=== PATIENT | female | born 1955 | race Caucasian/White ===

== ENCOUNTER 2019-10-05 11:21 | Outpatient (CLI) | payer MEDICARE, SELFPAY ==
--- NOTE | 2019-10-05 11:52 | XR_ITS ---
WS: [id number] SCREENING DEXA SCAN [employer] CLINICAL INFORMATION: ASYMPTOMATIC MENOPAUSAL STATE COMPARISON: None. FINDINGS: The L1-L4 bone mineral density measures 1.098. This corresponds to a T score score of -0.7 and Z scor e of 0.3. Left femoral neck bone mineral density measures 1.030. This corresponds to a T score of 0.2 and Z sco re of 1.0. Right femoral neck bone mineral density measures 1.055. This corresponds to a T score 0.4 and Z score of 1.2. Mean femoral neck bone mineral density measures 1.043. This corresponds to a T score of 0.3 and Z sco re of 1.1. XR/XR DEXA axial skeleton* [id number] IMPRESSION: Normal bone mineralization. Patient's FRAX calculated 10 year probability for major osteoporotic fracture i s 9.8 % and osteoporotic hip fracture is 0.8%.
== END 2019-10-05 11:22 | disposition home or self-care (01) ==
PROVIDERS: Family Provider Nurse Practitioner; PCP Nurse Practitioner; Referring Provider Nurse Practitioner; Visit Provider Nurse Practitioner
DX: Z78.0 Asymptomatic menopausal state (principal)
CPT/HCPCS: 77080

== ENCOUNTER 2020-09-08 10:02 | Outpatient (CLI) | payer MEDICARE, SELFPAY ==
--- NOTE | 2020-09-08 10:07 | MM_ITS ---
WS: [id number] BILATERAL DIGITAL DIAGNOSTIC MAMMOGRAM MAMMOGRAPHY WITH CAD CLINICAL INFORMATION: MASTODYNIA;LEFT BREAST PAIN COMPARISON: TECHNIQUE: Bilateral CC, MLO, and ML views. FINDINGS: Scattered fibroglandular densities bilaterally. Vascular calcification. A few incidental punctate ifeoma cifications. Palpable marker upper outer left breast. No underlying mammographic abnormalities in thi s location. Ultrasound is pending. ULTRASOUND BREAST LEFT TECHNIQUE: Ultrasound left breast focused area of concern. CLINICAL INFORMATION: MASTODYNIA;LEFT BREAST PAIN COMPARISON: None. FINDINGS: Ultrasound left axilla in the area of concern. Several lymph nodes are visualized. Enlarged likely ly mph node measuring 2.5 x 0.8 x 2.5 cm with loss of the normal fatty hilum. Recommend further evaluati on with ultrasound-guided biopsy. Additional enlarged lymph node measuring 3.1 x 0.9 x 3.3 cm with so me residual fatty hilum. Additional normal-appearing lymph nodes are seen. MM/[place] [id number] IMPRESSION: BI-RADS: 4-Suspicious Finding-Biopsy Should Be Considered FOLLOW UP: US Guided Biopsy Recommended RECOMMEND ULTRASOUND-GUIDED BIOPSY OF THE ENLARGED LEFT AXILLARY LYMPH NODE BJ CRIBED ABOVE.
== END 2020-09-08 10:03 | disposition home or self-care (01) ==
LOC: RADSHAW 10:06
PROVIDERS: PCP Nurse Practitioner; Visit Provider Nurse Practitioner
DX: N64.4 Mastodynia (principal); R59.0 Localized enlarged lymph nodes
CPT/HCPCS: 76642; 77066

== ENCOUNTER 2020-09-26 06:41 | Outpatient (CLI) | payer MEDICARE, SELFPAY ==
--- NOTE | 2020-09-26 08:00 | US_ITS ---
WS: [id number] ULTRASOUND-GUIDED LEFT AXILLARY BIOPSY CLINICAL INFORMATION: abnormal ultrasound enlarged lymph node COMPARISON: None. FINDINGS: The procedure including risks, benefits, and complications were discussed with the patient who agreed to proceed. Using sterile technique patient was prepped and draped in the usual sterile fashion. Aft er 1% lidocaine utilizing real-time ultrasound guidance 5 14-gauge cores were obtained of the left ax illary lymph node. No clip was placed. No immediate complications. PATHOLOGY DEMONSTRATES: Lymph node, left axilla mass , ultrasound-guided biopsy: -Reactive follicular hyperplasia. -No malignancy identified US/US biopsy lymph node breast/ax IMPRESSION: 1. Uncomplicated ultrasound-guided left axillary biopsy. 2. The pathology demonstrates reactive follicular hyperplasia. No evidence of malignancy. BI-RADS: 2-Benign FOLLOW UP: 1 Year Follow-up
[2020-09-29 09:12] LABS: Miscellaneous Test See Scanned Lab Rpt
== END 2020-09-26 06:42 | disposition home or self-care (01) ==
LOC: RAD 06:44
PROVIDERS: PCP Nurse Practitioner; Visit Provider Nurse Practitioner
DX: R59.0 Localized enlarged lymph nodes (principal)
CPT/HCPCS: 19083; 38505; 76942; 88305

== ENCOUNTER → 2022-03-14 13:27 | Outpatient (BNVA) | payer MEDICARE, SELFPAY | PROVIDERS: PCP Nurse Practitioner; Visit Provider Internal Medicine Cardiovascular Disease | DX: Z01.810 Encounter for preprocedural cardiovascular examination (principal); I25.2 Old myocardial infarction; E03.9 Hypothyroidism, unspecified; E78.00 Pure hypercholesterolemia, unspecified; I10 Essential (primary) hypertension | CPT/HCPCS: 99204 ==

== ENCOUNTER 2022-04-09 12:37 | Outpatient (CLI) | payer MEDICARE, SELFPAY ==
--- NOTE | 2022-04-09 13:22 | MM_ITS ---
WS: [id number] BILATERAL 3D TOMOSYNTHESIS DIGITAL SCREENING MAMMOGRAPHY WITH CAD CLINICAL INFORMATION: SCREENING HISTORY: Screening mammogram. No current complaints. COMPARISON: September 08, 2020 TECHNIQUE: Bilateral CC and MLO views. FINDINGS: Scattered fibroglandular densities bilaterally. Vascular calcification. Incidental punctate calcifica tions. No suspicious focal mass, asymmetry, calcifications, or architectural distortion. No evidence of malignancy. MM/[place] [id number] IMPRESSION: BI-RADS: 2-Benign FOLLOW UP: 1 Year Follow-up Recommend return to annual screening mammography.
== END 2022-04-09 12:38 | disposition home or self-care (01) ==
PROVIDERS: PCP Nurse Practitioner; Visit Provider Nurse Practitioner
DX: Z12.31 Encounter for screening mammogram for malignant neoplasm of breast (principal)
CPT/HCPCS: 77063; 77067

== ENCOUNTER 2022-10-09 09:01 | Outpatient (CLI) | payer MEDICARE, SELFPAY ==
--- NOTE | 2022-10-09 09:16 | US_ITS ---
WS: [id number] INDICATION: LEFT axillary pain TECHNIQUE: Ultrasound LEFT axilla FINDINGS: Ultrasound LEFT axilla. Multiple enlarged lymph nodes in the LEFT axilla with cortical thic kening and partial effacement of the fatty hilum. Largest lymph node measures approximately 3.8 x 3.3 x 1.1 cm. History of prior LEFT axillary biopsy. However, considering persistence symptoms and enlar ged lymph nodes, recommend additional ultrasound guided biopsy of the largest lymph node. US/US soft tissue/extremity [id number] IMPRESSION: Recommend ultrasound-guided biopsy of the largest lymph node LEFT a xilla.
== END 2022-10-09 09:02 | disposition home or self-care (01) ==
LOC: RAD 09:04
PROVIDERS: PCP Nurse Practitioner; Visit Provider Nurse Practitioner Family
DX: M79.622 Pain in left upper arm (principal); R59.0 Localized enlarged lymph nodes
CPT/HCPCS: 76882

== ENCOUNTER 2022-10-14 19:16 | Emergency (ER) | payer MEDICARE, SELFPAY ==
--- NOTE | 2022-10-14 19:22 | XRR_ITS ---
PROCEDURE INFORMATION: Exam: XR Chest Exam date and time: 10/14/2022 7:51 PM Age: 67 years old Clinical indication: Sternal or substernal pain; Additional info: Chest pain TECHNIQUE: Imaging protocol: Radiologic exam of the chest. Views: 1 view. COMPARISON: CR XR chest 1V [id number] 04/27/2016 2:23 AM FINDINGS: Lungs: Unremarkable. No consolidation. Pleural spaces: Unremarkable. No pleural effusion. No pneumothorax. Heart/Mediastinum: Unremarkable. No cardiomegaly. Bones/joints: Rightward thoracic curvature. No visible fracture. XR/XR chest 1V portable [id number] IMPRESSION: No acute findings.
--- NOTE | 2022-10-14 19:29 | ECG_ITS ---
[facility] Test Date: 2022-10-14 Pat Name: Vera Wetzel Department: Room: Gender: Female Furnace Filler: : 1955 Requested By: Joseph Voss Order Number: [id number] Mateo MD: Sterling Emanuel M.D. Measurements Intervals [place] Rate: 90 P: 33 LA: 192 QRS: -29 QRSD: 125 T: 10 QT: 351 QTc: 430 Interpretive Statements SINUS RHYTHM MODERATE INTRAVENTRICULAR CONDUCTION DELAY [105+ ms QRS DURATION, 80+ ms Q/S IN V1/V2, NO Q AND 60+ ms R IN I/aVL/V5/V6] VOLTAGE CRITERIA FOR LVH [MEETS CRITERIA IN ONE OF: R(aVL), S(V1), R(V5), R(V5/V6)+S(V1)] Compared to ECG 04/28/2016 12:54:21 Intraventricular conduction delay now present T-wave abnormality no longer present Possible ischemia no longer present Electronically Signed On 10-15-2022 7:11:37 ELECTROLYSIS OPERATOR by Sterling Emanuel M.D. [id number]
[2022-10-14 19:31] VITALS: BP 165/108; PULSE 87; RESP 16; TEMP 36.3; O2SAT 97; BMI 36.1
--- NOTE | 2022-10-14 19:39 | W.ED.CHESTPA ---
HPI - Chest Pain General: Chief Complaint: Chest Pain Stated Complaint: High BP, Chest pressure, Urgent care sent her Time Seen by Provider: 10/14/22 19:35 Source: patient Mode of arrival: ambulatory Limitations: no limitations History of Present Illness: 67-year-old female states that her blood pressures been running high for over a week she is supposed see her PCP on Saturday but she was out of office she states that she went to urgent care today because it been in the 160s and 170s she states she had some very mild pressure in the center of her chest denies any pain at this time. Patient denies any worsening improving factors denies any vomiting or diarrhea. Associated symptoms: Deny abdominal pain, dyspnea, fever(s), nausea or vomiting Review of Systems Const: Denies: fever(s), chills, body aches or change in appetite Eyes: Denies: blurry vision or eye discomfort ENMT: Denies: throat pain or dental pain Card: Reports: chest pain Resp: Denies: dyspnea GI: Denies: abdominal pain, nausea, vomiting or diarrhea : Denies: dysuria Musc: Denies: neck pain or back pain Skin/Breast: Denies: rash Neuro: Denies: headache(s) Psych: Denies: depression Wilbert/Lymph: Denies: easy bruising All/Imm: Denies: urticaria PFSH ED PFSH: Medical History Atherosclerosis CAD (coronary artery disease) Colon cancer Coronary thrombosis History of rectocele Hypercholesterolemia Hypertriglyceridemia Hypothyroidism Surgical History History of bowel resection Hx of cholecystectomy Hx of hysterectomy Hx of tubal ligation Social History Smoking and tobacco status: never smoked Physical Exam Const: COMMON NORMALS: no acute distress, patient oriented x3 and healthy appearing HENMT: COMMON NORMALS: normocephalic and atraumatic HEAD & SCALP: normocephalic and atraumatic Eye: COMMON NORMALS: Equal, round and reactive pupils present and EOMs intact bilaterally PUPIL: Yes Equal, round and reactive pupils present Neck/C-Spine: COMMON NORMALS: full ROM and supple Chest: COMMONS NORMALS: normal inspection of the chest and normal palpation of entire chest wall Resp: COMMON NORMALS: normal respiratory effort, No retractions, No use of accessory muscles and clear to auscultation bilaterally AUSCULTATION: clear to auscultation bilaterally Cardio: COMMON NORMALS: regular rate, regular rhythm and No murmurs present (Cardio) RATE: regular rate RHYTHM: regular rhythm GI: COMMON NORMALS: Normal to inspection, nondistended, normoactive bowel sounds present, Soft to palpation, non-tender and no masses PALPATION: Yes Soft to palpation Extremity: COMMON NORMALS: normal to inspection and full ROM Neuro: COMMON NORMALS: patient oriented x3, moves all extremities and no focal motor deficits Psych: COMMON NORMALS: mental status grossly normal, Normal thought process present and cooperative THOUGHT PROCESS: Normal thought process present Skin: COMMON NORMALS: no rashes or lesions noted and no wounds GENERAL SKIN EXAM: no rashes or lesions noted Course Vital Signs: Vital signs: Vital Signs Temperature 97.4 F L 10/14/22 19:31 Pulse Rate 75 10/14/22 19:53 Respiratory Rate 14 10/14/22 19:53 Blood Pressure 153/117 10/14/22 19:53 Pulse Oximetry 98 10/14/22 19:53 Oxygen Delivery Me thod 10/14/22 19:53 MDM - Chest Pain Medical Decision Making Patient presents here with high blood pressure she has had some mild chest discomfort no real pain she is pain-free here her troponin here is normal blood pressure improved here she had an appoint with her PCP tomorrow at 8 AM I feel she stable for discharge she is to follow-up as scheduled return if worsening she understands agrees to plan. Lab Data 10/14/22 19:50 10/14/22 19:50 Radiology Impressions Chest X-Ray 10/14/22 19:22 IMPRESSION: No acute findings. Laboratory Results WBC 5.9 10^3/uL (4.0-10.0) 10/14/22 19:50 RBC 5.10 10^6/uL (4.1-5.3) 10/14/22 19:50 Hgb 15.6 g/dL (11.5-15.3) H 10/14/22 19:50 Hct 45.7 % (37.0-47.0) 10/14/22 19:50 MCV 89.6 fl (81-99) 10/14/22 19:50 MCH 30.6 pg (28.0-34.0) 10/14/22 19:50 MCHC 34.1 g/dL (30.0-36.0) 10/14/22 19:50 RDW 12.4 % (12.1-15.1) 10/14/22 19:50 Plt Count 184 10^3/cmm (130-400) 10/14/22 19:50 MPV 10.4 fL (7.4-10.4) 10/14/22 19:50 Neut % (Auto) 57.4 % 10/14/22 19:50 Lymph % (Auto) 34.3 % 10/14/22 19:50 [place] % (Auto) 5.3 % 10/14/22 19:50 Eos % (Auto) 1.5 % 10/14/22 19:50 Baso % (Auto) 1.0 % 10/14/22 19:50 Neut # (Auto) 3.36 10^3/uL (1.8-7.7) 10/14/22 19:50 Lymph # (Auto) 2.0 10^3/uL (0.8-4.8) 10/14/22 19:50 [place] # (Auto) 0.3 10^3/uL (0.2-0.9) 10/14/22 19:50 Eos # (Auto) 0.1 10^3/uL (0.0-0.8) 10/14/22 19:50 Baso # (Auto) 0.1 10^3/uL (0.0-0.1) 10/14/22 19:50 Nucleated RBC % (auto) 0 % 10/14/22 19:50 Nucleated RBCs # 0.0 /100WBC 10/14/22 19:50 Sodium 134 mmol/L (136-145) L 10/14/22 19:50 Potassium 3.8 mmol/L (3.5-5.1) 10/14/22 19:50 Chloride 99 mmol/L (98-107) 10/14/22 19:50 Carbon Dioxide 25 mmol/L (22-29) 10/14/22 19:50 Anion Gap 13.8 (5-19) 10/14/22 19:50 BUN 13 mg/dL (8-23) 10/14/22 19:50 Creatinine 1.0 mg/dL (0.5-0.9) H 10/14/22 19:50 GFR Calculation 55.1 mL/min (90-130) L 10/14/22 19:50 Glucose 129 mg/dL (65-115) H 10/14/22 19:50 Calculated Osmolality 280 mOsm/kg (285-295) L 10/14/22 19:50 Calcium 9.5 mg/dL (8.5-10.5) 10/14/22 19:50 Total Bilirubin 0.3 mg/dL (0.15-1.2) 10/14/22 19:50 AST 21 U/L (0-32) 10/14/22 19:50 ALT 19 U/L (0-33) 10/14/22 19:50 Alkaline Phosphatase 69 U/L (35-105) 10/14/22 19:50 Troponin T Baseline 8 ng/L (0-10) 10/14/22 19:50 NT-Pro-B Natriuret Pep 71 pg/mL (0-125) 10/14/22 19:50 Total Protein 6.6 g/dL (6.6-8.7) 10/14/22 19:50 Albumin 4.4 g/dL (3.5-5.2) 10/14/22 19:50 Globulin 2.2 g/dL (1.3-4.6) 10/14/22 19:50 EKG Data EKG 1: I personally reviewed and interpreted this EKG as follows: EKG interpretation date: 10/14/22 EKG interpretation time: 19:29 Interpretation: nsr hr [address] or t wave abnormalities qrs 125 qtc 398 Discharge Plan Discharge Patient Disposition: Home Clinical Impression: Hypertension Condition: Stable Prescriptions: No Action aspirin [Adult Aspirin Regimen] 81 mg tablet,delayed release (DR/EC) 81 mg PO DAILY isosorbide mononitrate 30 mg tablet extended release 24 hr 30 mg PO DAILY pantoprazole 40 mg tablet,delayed release (DR/EC) 40 mg PO DAILY levothyroxine 50 mcg tablet 50 mcg PO DAILY metoprolol succinate 50 mg tablet extended release 24 hr 75 mg PO DAILY lisinopril 10 mg tablet 10 mg PO DAILY simvastatin 10 mg tablet 10 mg PO DAILY nitroglycerin 0.4 mg tablet, sublingual 0.4 mg sublingual Q5M PRN Rx Instructions: do not exceed 3 doses per episode Discharge Orders: Discharge ED (Routine); Ordered 10/14/22 Ordered By: Edilberto Barahona Referrals: Carli Mello APN [Primary Care Provider] - Discharge Diet: Advance as tolerated Discharge Activity: Resume usual activity Patient Instructions: Hypertension (ED) Coding Level of Care Code ED Quality Technician for Chg Fwd Exam Comprehensive
[2022-10-14 19:53] VITALS: BP 153/117; PULSE 75; RESP 14; O2SAT 98
[2022-10-14 19:59] LABS: Basophils # 0.1 10^3/uL (0.0-0.1); Eosinophils # 0.1 10^3/uL (0.0-0.8); Eosinophils % 1.5 %; Hematocrit 45.7 % (37.0-47.0); Hemoglobin 15.6 g/dL (11.5-15.3); Lymphocytes % 34.3 %; Mean Corpuscular HGB Conc 34.1 g/dL (30.0-36.0); Mean Corpuscular Hemoglobin 30.6 pg (28.0-34.0); Mean Corpuscular Volume 89.6 fl (81-99); Mean Platelet Volume 10.4 fL (7.4-10.4); Monocytes # 0.3 10^3/uL (0.2-0.9); Monocytes % 5.3 %; Neutrophils # 3.36 10^3/uL (1.8-7.7); Neutrophils % 57.4 %; Nucleated Red Blood Cells % 0 %; Platelet Count 184 10^3/cmm (130-400); Red Cell Distribution Width 12.4 % (12.1-15.1); White Blood Count 5.9 10^3/uL (4.0-10.0)
[2022-10-14] MEDS: labetalol 5 mg/mL SDV 20mL 10 MG IVP (20:02)
[2022-10-14 20:29] LABS: Troponin(5th) Baseline 8 ng/L (0-10)
[2022-10-14 20:36] LABS: Alanine Aminotransferase 19 U/L (0-33); Albumin Level 4.4 g/dL (3.5-5.2); Alkaline Phosphatase 69 U/L (35-105); Anion Gap 13.8 (5-19); Aspartate Amino Transferase 21 U/L (0-32); Blood Urea Nitrogen 13 mg/dL (8-23); Calcium 9.5 mg/dL (8.5-10.5); Carbon Dioxide 25 mmol/L (22-29); Chloride 99 mmol/L (98-107); Globulin 2.2 g/dL (1.3-4.6); Glomerular Filtration Rate 55.1 mL/min (90-130); Glucose 129 mg/dL (65-115); NT Pro B Type Natriuretic Pept 71 pg/mL (0-125); Osmolality Calculated 280 mOsm/kg (285-295); Potassium 3.8 mmol/L (3.5-5.1); Sodium 134 mmol/L (136-145); Total Bilirubin 0.3 mg/dL (0.15-1.2); Total Protein 6.6 g/dL (6.6-8.7)
[2022-10-14 20:40] VITALS: BP 152/93; PULSE 71; RESP 16; TEMP 36.9; O2SAT 97
== END 2022-10-14 20:48 | disposition home or self-care (01) ==
PROVIDERS: Nurse Practitioner Family; Emergency Provider Emergency Medicine; PCP Nurse Practitioner
DX: I10 Essential (primary) hypertension (principal); Z79.82 Long term (current) use of aspirin; I25.10 Atherosclerotic heart disease of native coronary artery without angina pectoris; Z85.038 Personal history of other malignant neoplasm of large intestine
CPT/HCPCS: 71045; 80053; 83880; 84484; 85025; 93005; 96374; 99285; J3490

== ENCOUNTER 2022-10-17 09:51 | Emergency (ER) | payer MEDICARE, SELFPAY ==
[2022-10-17 10:00] VITALS: BP 136/91; PULSE 81; RESP 18; TEMP 36.3; O2SAT 96; BMI 35.7
--- NOTE | 2022-10-17 11:36 | XRR_ITS ---
PROCEDURE INFORMATION: Exam: XR Chest Exam date and time: 10/17/2022 11:55 AM Age: 67 years old Clinical indication: Pain; Angina pectoris; Prior surgery; Patient HX: HX of colon cancer; Additional info: Cp TECHNIQUE: Imaging protocol: Radiologic exam of the chest. Views: 1 view. COMPARISON: CR (CHEST, ) 10/14/2022 7:51 PM FINDINGS: Lungs: Unremarkable. No consolidation. Pleural spaces: Unremarkable. No pleural effusion. No pneumothorax. Heart/Mediastinum: Unremarkable. No cardiomegaly. Bones/joints: Unremarkable. XR/XR chest 1V portable [id number] IMPRESSION: No acute findings.
--- NOTE | 2022-10-17 11:36 | ECG_ITS ---
[facility] Test Date: 2022-10-17 Pat Name: Vera Wetzel Department: Room: Gender: Female Precision Dancer: : 1955 Requested By: Ryan Jalloh Order Number: [id number] Mateo MD: Phylicia Staples M.D. Measurements Intervals [place] Rate: 70 P: 22 [place]: 192 QRS: -42 QRSD: 141 T: 9 QT: 396 QTc: 430 Interpretive Statements SINUS RHYTHM LEFT AXIS DEVIATION [QRS AXIS < -30] INTRAVENTRICULAR CONDUCTION DELAY [130+ ms QRS DURATION] Compared to ECG 10/14/2022 19:29:17 Left-axis deviation now present Left ventricular hypertrophy no longer present Electronically Signed On 10-18-2022 10:05:44 TAPE CONTROL SKIN OR SPAR MILL OPERATOR by Phylicia Staples M.D. [id number]
--- NOTE | 2022-10-17 11:38 | ED_ITS ---
HPI - General Adult General: Chief complaint: General Medical Stated complaint: Muukl sent for BP issues Time Seen by Provider: 10/17/22 10:08 Source: patient and family Mode of arrival: ambulatory Limitations: no limitations History of Present Illness: This patient was referred from [facility] clinic. Patient has a history of hypertension and coronary artery disease who had a thrombotic SD 6 years ago that did not require stenting. She is here because she has had fluctuations in her blood pressure associated with chest pressure epigastric pressure since yesterday evening. She states has been pretty constant since that period of time. She states she has had occasional episodes in the past. She has had a history of acid reflux and does take a proton pump inhibitor. She denies any history of vomiting radiation to her back. She states the pain seems to worsen some when she takes a deep breath. She states her blood pressure has been as high as 170/118 at home. She also admits that she has been taking some Naprosyn episodically for some left shoulder pain. Prior cholecystectomy and no food related issues. She is a nontobacco user does not use alcohol. Not been recently ill with fever cough etc. No blood in her stools or black tarry stools. No syncope near syncope palpitations etc. Associated symptoms: Reports chest pain; Deny palpitations, syncope or vomiting Review of Systems Const: Denies: fever(s) or chills Card: Reports: chest pain; Denies: palpitations, syncope or pre-syncope Resp: Denies: productive cough, non-productive cough, wheezing or stridor GI: Denies: vomiting, hematochezia or melena : Denies: flank pain, difficulty voiding or dysuria Musc: Denies: back pain, extremity pain or extremity swelling Psych: Denies: anxiety Wilbert/Lymph: Denies: easy bruising or easy bleeding PFSH ED PFSH: Medical History Atherosclerosis CAD (coronary artery disease) Colon cancer Coronary thrombosis History of rectocele Hypercholesterolemia Hypertriglyceridemia Hypothyroidism Surgical History History of bowel resection Hx of cholecystectomy Hx of hysterectomy Hx of tubal ligation Social History Smoking and tobacco status: never smoked Physical Exam Narrative: EXAM NARRATIVE: Appears to be quite comfortable. She interacts appropriately and answers questions in a goal-directed fashion. Const: COMMON NORMALS: no acute distress, patient oriented x3, healthy appearing and alert GENERAL APPEARANCE: cooperative and comfortable NUTR ITIONAL APPEARANCE: overweight HENMT: COMMON NORMALS: normocephalic, Normal nasal mucous membranes and turbinates present, moist oral mucous membranes and oropharynx normal HEAD & SCALP: normocephalic NOSE: Normal nasal mucous membranes and turbinates present Eye: COMMON NORMALS: Equal, round and reactive pupils present, EOMs intact bilaterally and conjunctivae normal CONJUNCTIVA: Yes conjunctivae normal PUPIL: Yes Equal, round and reactive pupils present Neck/C-Spine: COMMON NORMALS: full ROM, no lymphadenopathy, no JVD and No carotid bruits Chest: COMMONS NORMALS: normal inspection of the chest OTHER: Palpation in the inferior portion of the anterior sternum reproduces tenderness. No skin rashes. No ecchymosis. Resp: COMMON NORMALS: normal respiratory effort, No use of accessory muscles, clear to auscultation bilaterally and percussion normal EFFORT & INSPECTION: Yes able to speak in complete sentences AUSCULTATION: clear to auscultation bilaterally PERCUSSION: percussion normal Cardio: COMMON NORMALS: no JVD, regular rate, regular rhythm, No clicks present (Cardio), No murmurs present (Cardio) and Peripheral pulses 2+ throughout RATE: regular rate RHYTHM: regular rhythm PERIPHERAL PULSES: Peripheral pulses 2+ throughout GI: COMMON NORMALS: Normal to inspection, nondistended, normoactive bowel sounds present, No hepatosplenomegaly present, no masses and no bruits PALPATION: Yes No hepatosplenomegaly present OTHER: She has tenderness in the epigastrium under the sternum. No peritoneal signs, rebound, guarding etc. : COMMON NORMALS: Yes no CVA tenderness BLADDER/KIDNEY EXAM: Yes no CVA tenderness Back/Pelvis: COMMON NORMALS: no CVA tenderness, thoracic and lumbar spine normal to inspection, no thoracic nor lumbar tenderness, thoraco-lumbar ROM normal and straight leg raise negative bilaterally Extremity: COMMON NORMALS: normal to inspection, full ROM, capillary refill normal, no joint enlargement, no clubbing, cyanosis or edema, no calf tenderness and no pedal edema Neuro: COMMON NORMALS: patient oriented x3, moves all extremities, no focal motor deficits and no sensory deficits noted SENSORIUM/ORIENTATION: Yes alert Psych: COMMON NORMALS: mental status grossly normal Skin: COMMON NORMALS: no rashes or lesions noted and turgor normal GENERAL SKIN EXAM: no rashes or lesions noted and turgor normal Course Reevaluation(s): Reevaluation #1: Patient states she is improving. I shared with both she and her spouse regarding negative troponin and other ancillary studies at this time which were all reassuring given the duration of her symptoms. Time: 12:40 Reevaluation #2: Patient is totally asymptomatic at this time. Second troponin is also reassuring as well as serial EKGs. She expresses desire to be discharged home. We discussed plan of care. Time: 15:10 Vital Signs: Vital signs: Vital Signs Temperature 97.4 F L 10/17/22 10:00 Pulse Rate 81 10/17/22 10:00 Respiratory Rate 18 10/17/22 10:00 Blood Pressure 132/86 10/17/22 13:55 Pulse Oximetry 98 10/17/22 13:55 Oxygen Delivery Me thod 10/17/22 13:55 [facility] - General Adult Medical Decision Making Patient with a history of hypertension. She is had epigastric pain for greater than 12 hours prior to arrival to our emergency department. She is also has some mild fluctuations in her blood pressure which has concerned her. She is apparently been taking some Naprosyn on an as-needed basis for shoulder pain. She is not had any history that suggested significant GI bleeding with black tarry stools, bloody stools etc. She had a prior cholecystectomy. Her blood pressures were noted to be in a normal range while in the emergency department. Because of her comorbidities and current symptoms she was evaluated for possible ACS and no evidence at this time given serial biomarkers being reassuring as well as serial electrocardiograms showing no ischemic changes making ACS unlikely. No other significant findings on clinical history, exam or ancillary test today that suggest other concerning conditions. Certainly suggest possible gastroesophageal reflux disease or acid dyspepsia. She has been taking a proton pump inhibitor for many years and I think it is appropriate for us to discontinue that and place her on double therapy with Carafate and Pepcid for approximately 2 weeks and have her followed up with her primary care office as scheduled. We also discussed the potential need for additional testing such as endoscopy etc. in the future should she not continue to be symptom-free. Medical Records I reviewed the patient's medical records. Lab Data I reviewed the patient's lab results. 10/17/22 11:50 10/17/22 11:50 Radiology Impressions Chest X-Ray 10/17/22 11:36 IMPRESSION: No acute findings. Laboratory Results WBC 7.2 10^3/uL (4.0-10.0) 10/17/22 11:50 RBC 5.32 10^6/uL (4.1-5.3) H 10/17/22 11:50 Hgb 16.7 g/dL (11.5-15.3) H 10/17/22 11:50 Hct 48.1 % (37.0-47.0) H 10/17/22 11:50 MCV 90.4 fl (81-99) 10/17/22 11:50 MCH 31.4 pg (28.0-34.0) 10/17/22 11:50 MCHC 34.7 g/dL (30.0-36.0) 10/17/22 11:50 RDW 12.5 % (12.1-15.1) 10/17/22 11:50 Plt Count 208 10^3/cmm (130-400) 10/17/22 11:50 MPV 10.3 fL (7.4-10.4) 10/17/22 11:50 Neut % (Auto) 67.7 % 10/17/22 11:50 Lymph % (Auto) 25.8 % 10/17/22 11:50 Dickson % (Auto) 5.0 % 10/17/22 11:50 Eos % (Auto) 0.4 % 10/17/22 11:50 Baso % (Auto) 0.7 % 10/17/22 11:50 Neut # (Auto) 4.84 10^3/uL (1.8-7.7) 10/17/22 11:50 Lymph # (Auto) 1.9 10^3/uL (0.8-4.8) 10/17/22 11:50 Dickson # (Auto) 0.4 10^3/uL (0.2-0.9) 10/17/22 11:50 Eos # (Auto) 0.0 10^3/uL (0.0-0.8) 10/17/22 11:50 Baso # (Auto) 0.1 10^3/uL (0.0-0.1) 10/17/22 11:50 Nucleated RBC % (auto) 0 % 10/17/22 11:50 Nucleated RBCs # 0.0 /100WBC 10/17/22 11:50 Sodium 137 mmol/L (136-145) 10/17/22 11:50 Potassium 3.9 mmol/L (3.5-5.1) 10/17/22 11:50 Chloride 101 mmol/L (98-107) 10/17/22 11:50 Carbon Dioxide 25 mmol/L (22-29) 10/17/22 11:50 Anion Gap 14.9 (5-19) 10/17/22 11:50 BUN 12 mg/dL (8-23) 10/17/22 11:50 Creatinine 1.0 mg/dL (0.5-0.9) H 10/17/22 11:50 GFR Calculation 55.1 mL/min (90-130) L 10/17/22 11:50 Glucose 102 mg/dL (65-115) 10/17/22 11:50 Calculated Osmolality 284 mOsm/kg (285-295) L 10/17/22 11:50 Calcium 9.7 mg/dL (8.5-10.5) 10/17/22 11:50 Total Bilirubin 0.4 mg/dL (0.15-1.2) 10/17/22 11:50 AST 24 U/L (0-32) 10/17/22 11:50 ALT 19 U/L (0-33) 10/17/22 11:50 Alkaline Phosphatase 70 U/L (35-105) 10/17/22 11:50 Troponin T Baseline 7 ng/L (0-10) 10/17/22 11:50 Troponin T 120 Minute 6.97 ng/L (0-10) 10/17/22 14:16 Delta Troponin T -0.03 ABS# (0-10) L 10/17/22 14:16 Total Protein 7.1 g/dL (6.6-8.7) 10/17/22 11:50 Albumin 4.5 g/dL (3.5-5.2) 10/17/22 11:50 Globulin 2.6 g/dL (1.3-4.6) 10/17/22 11:50 Lipase 60 U/L (13-60) 10/17/22 11:50 EKG Data EKG 1: I personally reviewed and interpreted this EKG as follows: Interpretation: Contemporaneous review of EKG reveals ventricular rate of 70 bpm consistent with sinus rhythm. Normal OR interval, QRS duration. Corrected QT intervals normal. He has a leftward axis consistent with likely left anterior Heema block but no other acute ST-T wave changes noted. Computer generated interpretation: Chest X-Ray 10/17/22 11:36 IMPRESSION: No acute findings. EKG 2: I personally reviewed and interpreted this EKG as follows: Interpretation: Repeat electrocardiogram this visit reveals a sinus bradycardia 58 bpm. She has normal OR interval, QRS duration, corrected QT interval. She has leftward axis. As previously noted. No other acute ST-T wave changes and unchanged compared with prior tracings. Computer generated interpretation: Chest X-Ray 10/17/22 11:36 IMPRESSION: No acute findings. Discharge Plan Discharge Patient Disposition: Home Clinical Impression: Hypertension, Abdominal pain, epigastric Condition: Stable Prescriptions: New Carafate 1 gram tablet 1 g PO TID 28 Days Qty: 84 0RF Pepcid 40 mg tablet 40 mg PO BID 14 Days Qty: 28 0RF Discontinued pantoprazole 40 mg tablet,delayed release (DR/EC) 40 mg PO QPM naproxen 500 mg tablet 250 - 500 mg PO BID PRN (Reason: Pain) No Action aspirin [Adult Aspirin Regimen] 81 mg tablet,delayed release (DR/EC) 81 mg PO QAM isosorbide mononitrate 30 mg tablet extended release 24 hr 30 mg PO QAM metoprolol succinate 50 mg tablet extended release 24 hr 50 mg PO BID lisinopril 10 mg tablet 10 mg PO BEDTIME simvastatin 10 mg tablet 10 mg PO BEDTIME nitroglycerin 0.4 mg tablet, sublingual 0.4 mg sublingual Q5M PRN (Reason: Chest Pain) Rx Instructions: do not exceed 3 doses per episode levothyroxine 25 mcg tablet 25 mcg PO QAM Discharge Orders: Discharge ED (Routine); Ordered 10/17/22 Ordered By: Ryan Jalloh Referrals: Tran Gilman NP [Primary Care Provider] - Discharge Diet: Usual diet Discharge Activity: Increase activity as tolerated Patient Instructions: Abdominal Pain (ED), Opioid Safety, Pain Management Activity Restrictions/Additional Instructions: We have made changes to your medications as discussed. Continue the new medications and follow-up with your regular doctor in 2 weeks for reevaluation to determine if therapy is improving and or additional testing needs to be performed. If you develop persistent chest pain, shortness of breath, fevers chills or other concerns return to this or the nearest emergency department. Coding Level of Care Code ED Identification Technician for Parish Fwd Exam Comprehensive
[2022-10-17 12:01] LABS: Basophils # 0.1 10^3/uL (0.0-0.1); Basophils % 0.7 %; Eosinophils % 0.4 %; Hematocrit 48.1 % (37.0-47.0); Hemoglobin 16.7 g/dL (11.5-15.3); Lymphocytes # 1.9 10^3/uL (0.8-4.8); Lymphocytes % 25.8 %; Mean Corpuscular HGB Conc 34.7 g/dL (30.0-36.0); Mean Corpuscular Hemoglobin 31.4 pg (28.0-34.0); Mean Corpuscular Volume 90.4 fl (81-99); Mean Platelet Volume 10.3 fL (7.4-10.4); Monocytes # 0.4 10^3/uL (0.2-0.9); Neutrophils # 4.84 10^3/uL (1.8-7.7); Neutrophils % 67.7 %; Nucleated Red Blood Cells % 0 %; Platelet Count 208 10^3/cmm (130-400); Red Blood Count 5.32 10^6/uL (4.1-5.3); Red Cell Distribution Width 12.5 % (12.1-15.1); White Blood Count 7.2 10^3/uL (4.0-10.0)
[2022-10-17] MEDS: aspirin 81 mg Chew Tablet 162 MG PO (12:20)
[2022-10-17] MEDS: famotidine 20 mg/2 mL INJ 40 MG IVP (12:21)
[2022-10-17] MEDS: sodium chloride 0.9% 500 ML IV (12:21)
[2022-10-17 12:23] LABS: Troponin(5th) Baseline 7 ng/L (0-10)
[2022-10-17 12:25] LABS: Alanine Aminotransferase 19 U/L (0-33); Albumin Level 4.5 g/dL (3.5-5.2); Alkaline Phosphatase 70 U/L (35-105); Anion Gap 14.9 (5-19); Aspartate Amino Transferase 24 U/L (0-32); Blood Urea Nitrogen 12 mg/dL (8-23); Calcium 9.7 mg/dL (8.5-10.5); Carbon Dioxide 25 mmol/L (22-29); Chloride 101 mmol/L (98-107); Globulin 2.6 g/dL (1.3-4.6); Glomerular Filtration Rate 55.1 mL/min (90-130); Glucose 102 mg/dL (65-115); Lipase 60 U/L (13-60); Osmolality Calculated 284 mOsm/kg (285-295); Potassium 3.9 mmol/L (3.5-5.1); Sodium 137 mmol/L (136-145); Total Bilirubin 0.4 mg/dL (0.15-1.2); Total Protein 7.1 g/dL (6.6-8.7)
[2022-10-17] MEDS: sucralfate 1 gm/10 mL Oral Liq UDC PO (13:36)
--- NOTE | 2022-10-17 13:48 | ECG_ITS ---
[facility] Test Date: 2022-10-17 Pat Name: Vera Wetzel Department: Room: Gender: Female Environmental Professional: : 1955 Requested By: Ryan Jalloh Order Number: [id number] Mateo MD: Phylicia Staples M.D. Measurements Intervals [place] Rate: 58 P: 82 ND: 206 QRS: -39 QRSD: 123 T: -3 QT: 411 QTc: 405 Interpretive Statements SINUS BRADYCARDIA LEFT AXIS DEVIATION [QRS AXIS < -30] MODERATE INTRAVENTRICULAR CONDUCTION DELAY [105+ ms QRS DURATION, 80+ ms Q/S IN V1/V2, NO Q AND 60+ ms R IN I/aVL/V5/V6] VOLTAGE CRITERIA FOR LVH [MEETS CRITERIA IN ONE OF: R(aVL), S(V1), R(V5), R(V5/V6)+S(V1)] Compared to ECG 10/17/2022 11:44:58 Left ventricular hypertrophy now present Sinus rhythm no longer present Electronically Signed On 10-18-2022 10:11:40 GAS STATION ATTENDANT by Phylicia Staples M.D. [id number]
[2022-10-17 13:55] VITALS: BP 132/86; O2SAT 98
[2022-10-17 14:48] LABS: Troponin 5 2HR 6.97 ng/L (0-10)
[2022-10-17 14:53] LABS: Troponin 5 2HR Delta -0.03 ABS# (0-10)
[2022-10-17] MEDS: hyoscyamine ODT 0.125 mg Tablet PO (15:00)
[2022-10-17 15:17] VITALS: BP 127/81; PULSE 71; O2SAT 98
== END 2022-10-17 15:18 | disposition home or self-care (01) ==
PROVIDERS: Emergency Provider Emergency Medicine; PCP Nurse Practitioner Family
DX: R10.13 Epigastric pain (principal); I10 Essential (primary) hypertension; Z79.82 Long term (current) use of aspirin; I25.10 Atherosclerotic heart disease of native coronary artery without angina pectoris; Z85.038 Personal history of other malignant neoplasm of large intestine
CPT/HCPCS: 36415; 71045; 80053; 83690; 84484; 85025; 93005; 96361; 96374; 99285; J3490; J7040

== ENCOUNTER 2022-10-18 11:11 | Outpatient (CLI) | payer MEDICARE, SELFPAY ==
--- NOTE | 2022-10-18 11:34 | USCV_ITS ---
Vera Wetzel Age: 67 Gender: F : 1955 Exam Date: 10/18/2022 12:13 Ordering Phys: Tran Gilman NP Technologist: PETERSON Exam Location: [facility] [place] Indication: chest pain, shortness of breath BP: 134 / 80 HR: 63 Rhythm: Sinus Technical Quality: Adequate MEASUREMENTS (Male / Female) Normal Values 2D ECHO LV Diastolic Diameter PLAX 4.3 cm 4.2 - 5.9 / 3.9 - 5.3 cm LV Systolic Diameter PLAX 2.9 cm IVS Diastolic Thickness 0.6 cm 0.6 - 1.0 / 0.6 - 0.9 cm IVS Systolic Thickness 0.9 cm LVPW Diastolic Thickness 0.7 cm 0.6 - 1.0 / 0.6 - 0.9 cm LVPW Systolic Thickness 1.8 cm LVOT Diameter 2.0 cm LV Ejection Fraction 2D Teich 61.5 % LV Ejection Fraction MOD 2C 53.7 % LV Ejection Fraction 2C AL 52.6 % LA Diameter 3.4 cm LA Width 3.4 cm LA Height 3.7 cm RA Width 2.5 cm RA Height 3.2 cm Aorta at Sinotubular Diameter 2.5 cm IVC Diameter 1.6 cm M-MODE Aortic Annulus Diameter 2.7 cm LA Ao Ratio MM 1.3 MV E Point Septal Separation 1.0 cm DOPPLER AV Peak Velocity 125.0 cm/s LVOT Peak Velocity 102.0 cm/s AV Area Cont Eq vti 2.5 cm squared AV Area Cont Eq pk 2.6 cm squared MV Peak Velocity 88.0 cm/s MV Area PHT 4.4 cm squared Mitral E to A Ratio 0.9 MV E' Velocity 40.0 cm/s Mitral E to MV E' Ratio 5.8 Mitral E to LV E' Lateral Ratio 4.4 Mitral E to LV E' Septal Ratio 8.7 TR Peak Velocity 168.5 cm/s TR Peak Gradient 11.4 mmHg TR Mean Velocity 142.0 cm/s TR Mean Gradient 8.7 mmHg TR Velocity Time Integral 46.2 cm Right Atrial Pressure 3.0 mmHg Pulmonary Artery Systolic Pressu 14.4 mmHg PV Peak Velocity 87.0 cm/s RV Acceleration Time 0.1 s RV Ejection Time 0.3 s RV AcT/ET 0.3 FINDINGS Left Ventricle Left ventricle is normal size. LV systolic function is normal with EF of 55 to 60%. Mild hypokinesis of inferior and inferolateral berry seen Right Ventricle Normal in size and function Right Atrium Normal in size Left Atrium Normal in size Mitral Valve Mitral valve is thickened. Trace mitral regurgitation. Aortic Valve Aortic valve is thickened. No significant stenosis. Mild aortic regurgitation. Tricuspid Valve Mild tricuspid regurgitation. Pulmonary artery systolic pressure is normal. Pulmonic Valve Not well-visualized Pericardium Normal Aorta Normal in size IVC Appears to be normal CONCLUSIONS LV systolic function is normal with EF 55 to 60% Mild mitral regurgitation Mild aortic regurgitation Mild tricuspid regurgitation Compared to prior echocardiogram from 2016, no significant change are seen. Raad Collier MD (Electronically Signed) Final Date: 20 October 2022 21:00 S
== END 2022-10-18 11:12 | disposition home or self-care (01) ==
PROVIDERS: PCP Nurse Practitioner Family; Visit Provider Nurse Practitioner Family
DX: R07.9 Chest pain, unspecified (principal); R06.02 Shortness of breath; I08.3 Combined rheumatic disorders of mitral, aortic and tricuspid valves
CPT/HCPCS: 93306

== ENCOUNTER 2022-10-27 01:25 | Emergency (ER) | payer MEDICARE, SELFPAY ==
[2022-10-27 01:33] VITALS: BP 173/101; PULSE 87; RESP 16; TEMP 36.5; O2SAT 98; BMI 36.9
[2022-10-27 02:00] VITALS: BP 142/94; PULSE 77; RESP 16; O2SAT 95
--- NOTE | 2022-10-27 02:20 | XRR_ITS ---
PROCEDURE INFORMATION: Exam: XR Chest Exam date and time: 10/27/2022 2:37 AM Age: 67 years old Clinical indication: Pain; Chest pressure; Additional info: Cp TECHNIQUE: Imaging protocol: Radiologic exam of the chest. Views: 1 view. COMPARISON: CR XR chest 1V portable [id number] 10/17/2022 11:55 AM FINDINGS: Lungs: Minimal left basilar atelectasis. Pneumonia should be excluded clinically. Pleural spaces: Unremarkable. No pleural effusion. No pneumothorax. Heart/Mediastinum: Stable cardiomediastinal silhouette. Bones/joints: Unremarkable. XR/XR chest 1V portable [id number] IMPRESSION: Minimal left basilar atelectasis. Pneumonia should be excluded clinically.
--- NOTE | 2022-10-27 02:20 | ECG_ITS ---
[facility] Test Date: 2022-10-27 Pat Name: Vera Wetzel Department: Room: Gender: Female Quill Skinner: : 1955 Requested By: Dontae Cardenas Order Number: [id number] Mateo MD: Raad Collier M.D. Measurements Intervals [place] Rate: 71 P: 75 [place]: 173 QRS: -24 QRSD: 125 T: 34 QT: 395 QTc: 430 Interpretive Statements SINUS RHYTHM WITH OCCASIONAL SUPRAVENTRICULAR PREMATURE COMPLEXES VOLTAGE CRITERIA FOR LVH [MEETS CRITERIA IN ONE OF: R(aVL), S(V1), R(V5), R(V5/V6)+S(V1)] POSSIBLE ANTERIOR MYOCARDIAL INFARCTION , PROBABLY OLD [30 ms Q WAVE IN V3/V4, OR R < 0.2 mV IN V4] Compared to ECG 10/17/2022 13:48:35 Myocardial infarct finding now present Sinus bradycardia no longer present Left-axis deviation no longer present Intraventricular conduction delay no longer present Electronically Signed On 10-28-2022 11:24:44 OIL WELL FISHING TOOL OPERATOR by Raad Collier M.D. [id number]
--- NOTE | 2022-10-27 02:23 | W.ED.CHESTPA ---
HPI - Chest Pain General: Chief Complaint: Chest Pain Stated Complaint: High Blood Pressure\Pressure in Chest Time Seen by Provider: 10/27/22 01:41 Source: patient History of Present Illness: 67-year-old female who has been seen a couple of times recently for chest discomfort. This seems to be when her blood pressure is high she checked her blood pressure at home this evening and it was 190s over 110s. She developed some chest pressure in the central part of her chest. It does not radiate. She is not short of breath. She is not nauseated. She states that she felt well earlier in the day. No cough, no fever. No swelling of the feet or legs. MD complaint: chest pain Pertinent past history: prior [place] Onset (ago): hour(s) Timing of current episode: constant Prior episodes: Yes Onset: during rest Pain location: substernal Pain radiation: none Relieving factors: nothing Exacerbating factors: nothing Associated symptoms: Deny abdominal pain, diaphoresis, dyspnea, fever(s), leg edema, nausea, palpitations or vomiting Review of Systems Const: Denies: fever(s) or diaphoresis Eyes: Denies: change in vision ENMT: Denies: throat pain Card: Denies: chest pain or palpitations Resp: Denies: dyspnea GI: Denies: abdominal pain, nausea or vomiting PFSH ED PFSH: Medical History Atherosclerosis CAD (coronary artery disease) Colon cancer Coronary thrombosis History of rectocele Hypercholesterolemia Hypertriglyceridemia Hypothyroidism Surgical History History of bowel resection Hx of cholecystectomy Hx of hysterectomy Hx of tubal ligation Social History Smoking and tobacco status: never smoked Physical Exam Const: COMMON NORMALS: no acute distress GENERAL APPEARANCE: cooperative; not ill appearing and not frail appearing HENMT: COMMON NORMALS: normocephalic, atraumatic and Normal external nose present HEAD & SCALP: normocephalic and atraumatic FACE & SINUS: normal facial exam and face symmetric NOSE: Normal external nose present Eye: COMMON NORMALS: Equal, round and reactive pupils present and EOMs intact bilaterally PUPIL: Yes Equal, round and reactive pupils present Neck/C-Spine: GENERAL: Yes trachea midline Chest: CHEST: Yes Symmetrical chest wall rise Resp: COMMON NORMALS: normal respiratory effort, No retractions, No use of accessory muscles and clear to auscultation bilaterally AUSCULTATION: clear to auscultation bilaterally Cardio: COMMON NORMALS: regular rate and regular rhythm RATE: regular rate RHYTHM: regular rhythm GI: COMMON NORMALS: Normal to inspection, nondistended, normoactive bowel sounds present Extremity: COMMON NORMALS: no pedal edema Neuro: TAMMY COMA SCALE: document GCS findings [place] coma scale eye opening: Spontaneous Tammy coma scale verbal response: Orientated [place] coma scale motor response: Obey commands Tammy coma scale total score: 15 SENSORY EXAM: Yes extremities (intact) Psych: COMMON NORMALS: speech normal SPEECH: Yes normal speech Skin: COMMON NORMALS: no rashes or lesions noted GENERAL SKIN EXAM: no rashes or lesions noted Course Vital Signs: Vital signs: Vital Signs Temperature 97.7 F 10/27/22 01:33 Pulse Rate 77 10/27/22 02:00 Respiratory Rate 16 10/27/22 02:00 Blood Pressure 128/91 10/27/22 02:30 Pulse Oximetry 96 10/27/22 02:30 Oxygen Delivery Me thod 10/27/22 02:30 MDM - Chest Pain Medical Decision Making 67-year-old female here with chest discomfort. Resolved now. It was nearly resolved prior to arrival. She was hypertensive on arrival, but this improved significantly. Currently blood pressure is 109/67. Saturations 97%. She is feeling much better and wishes to go home. Her troponin is 7. Her EKG shows normal sinus rhythm with normal axis. LVH is present. No acute ST wave changes. Rate is 70. We will let her go home to follow-up with her PCP on Saturday as scheduled. She will be given amlodipine, for blood pressure spikes as needed in the meantime. She will return for any return of her chest pain or other problems. Lab Data 10/27/22 02:35 10/27/22 02:35 Radiology Impressions Chest X-Ray 10/27/22 02:20 IMPRESSION: Minimal left basilar atelectasis. Pneumonia should be excluded clinically. Laboratory Results WBC 5.4 10^3/uL (4.0-10.0) 10/27/22 02:35 RBC 4.85 10^6/uL (4.1-5.3) 10/27/22 02:35 Hgb 14.9 g/dL (11.5-15.3) 10/27/22 02:35 Hct 44.3 % (37.0-47.0) 10/27/22 02:35 MCV 91.3 fl (81-99) 10/27/22 02:35 MCH 30.7 pg (28.0-34.0) 10/27/22 02:35 MCHC 33.6 g/dL (30.0-36.0) 10/27/22 02:35 RDW 12.4 % (12.1-15.1) 10/27/22 02:35 Plt Count 182 10^3/cmm (130-400) 10/27/22 02:35 MPV 10.2 fL (7.4-10.4) 10/27/22 02:35 Neut % (Auto) 65.9 % 10/27/22 02:35 Lymph % (Auto) 24.8 % 10/27/22 02:35 Sargent % (Auto) 6.1 % 10/27/22 02:35 Eos % (Auto) 1.9 % 10/27/22 02:35 Baso % (Auto) 0.9 % 10/27/22 02:35 Neut # (Auto) 3.56 10^3/uL (1.8-7.7) 10/27/22 02:35 Lymph # (Auto) 1.3 10^3/uL (0.8-4.8) 10/27/22 02:35 Sargent # (Auto) 0.3 10^3/uL (0.2-0.9) 10/27/22 02:35 Eos # (Auto) 0.1 10^3/uL (0.0-0.8) 10/27/22 02:35 Baso # (Auto) 0.1 10^3/uL (0.0-0.1) 10/27/22 02:35 Nucleated RBC % (auto) 0 % 10/27/22 02:35 Nucleated RBCs # 0.0 /100WBC 10/27/22 02:35 Sodium 139 mmol/L (136-145) 10/27/22 02:35 Potassium 3.6 mmol/L (3.5-5.1) 10/27/22 02:35 Chloride 102 mmol/L (98-107) 10/27/22 02:35 Carbon Dioxide 26 mmol/L (22-29) 10/27/22 02:35 Anion Gap 14.6 (5-19) 10/27/22 02:35 BUN 11 mg/dL (8-23) 10/27/22 02:35 Creatinine 1.0 mg/dL (0.5-0.9) H 10/27/22 02:35 GFR Calculation 55.1 mL/min (90-130) L 10/27/22 02:35 Glucose 108 mg/dL (65-115) 10/27/22 02:35 Calculated Osmolality 288 mOsm/kg (285-295) 10/27/22 02:35 Calcium 9.3 mg/dL (8.5-10.5) 10/27/22 02:35 Total Bilirubin 0.4 mg/dL (0.15-1.2) 10/27/22 02:35 AST 22 U/L (0-32) 10/27/22 02:35 ALT 19 U/L (0-33) 10/27/22 02:35 Alkaline Phosphatase 59 U/L (35-105) 10/27/22 02:35 Troponin T Baseline 7 ng/L (0-10) 10/27/22 02:35 NT-Pro-B Natriuret Pep 126 pg/mL (0-125) H 10/27/22 02:35 Total Protein 6.2 g/dL (6.6-8.7) L 10/27/22 02:35 Albumin 4.1 g/dL (3.5-5.2) 10/27/22 02:35 Globulin 2.1 g/dL (1.3-4.6) 10/27/22 02:35 Discharge Plan Discharge Patient Disposition: Home Clinical Impression: Chest pain, Hypertension Condition: Stable Prescriptions: New amlodipine 5 mg tablet 5 mg PO DAILY Qty: 30 0RF No Action aspirin [Adult Aspirin Regimen] 81 mg tablet,delayed release (DR/EC) 81 mg PO QAM isosorbide mononitrate 30 mg tablet extended release 24 hr 30 mg PO QAM metoprolol succinate 50 mg tablet extended release 24 hr 50 mg PO BID lisinopril 10 mg tablet 10 mg PO BEDTIME simvastatin 10 mg tablet 10 mg PO BEDTIME nitroglycerin 0.4 mg tablet, sublingual 0.4 mg sublingual Q5M PRN (Reason: Chest Pain) Rx Instructions: do not exceed 3 doses per episode levothyroxine 25 mcg tablet 25 mcg PO QAM Carafate 1 gram tablet 1 g PO TID 28 Days Qty: 84 0RF Pepcid 40 mg tablet 40 mg PO BID 14 Days Qty: 28 0RF Discharge Orders: Discharge ED (Routine); Ordered 10/27/22 Ordered By: Dontae Rivera Referrals: Tran Gilman NP [Primary Care Provider] - 1-3 days Patient Instructions: Chest Pain (ED), Hypertension (ED) Activity Restrictions/Additional Instructions: Return for repeated episodes of chest pain, shortness of breath, fever, any other concerning symptoms. Check your blood pressure twice daily. If the top number (systolic) stays above 150, you may take the medication prescribed. Wait at least 2 hours prior to checking them blood pressure again. Call your rails developer on Saturday as well, they may wish to see you. Follow-up with your doctor as scheduled. Coding Level of Care Code ED Computer Programming Supervisor for [employer] Fwd Exam Comprehensive
[2022-10-27 02:30] VITALS: BP 128/91; O2SAT 96
[2022-10-27] MEDS: nitroglycerin 1 gm/inch oint Pkt 1 INCH TOPICAL (02:36)
[2022-10-27 02:41] LABS: Basophils # 0.1 10^3/uL (0.0-0.1); Basophils % 0.9 %; Eosinophils # 0.1 10^3/uL (0.0-0.8); Eosinophils % 1.9 %; Hematocrit 44.3 % (37.0-47.0); Hemoglobin 14.9 g/dL (11.5-15.3); Lymphocytes # 1.3 10^3/uL (0.8-4.8); Lymphocytes % 24.8 %; Mean Corpuscular HGB Conc 33.6 g/dL (30.0-36.0); Mean Corpuscular Hemoglobin 30.7 pg (28.0-34.0); Mean Corpuscular Volume 91.3 fl (81-99); Mean Platelet Volume 10.2 fL (7.4-10.4); Monocytes # 0.3 10^3/uL (0.2-0.9); Monocytes % 6.1 %; Neutrophils # 3.56 10^3/uL (1.8-7.7); Neutrophils % 65.9 %; Nucleated Red Blood Cells % 0 %; Platelet Count 182 10^3/cmm (130-400); Red Blood Count 4.85 10^6/uL (4.1-5.3); Red Cell Distribution Width 12.4 % (12.1-15.1); White Blood Count 5.4 10^3/uL (4.0-10.0)
[2022-10-27 03:00] LABS: Troponin(5th) Baseline 7 ng/L (0-10)
[2022-10-27 03:10] LABS: Alanine Aminotransferase 19 U/L (0-33); Albumin Level 4.1 g/dL (3.5-5.2); Alkaline Phosphatase 59 U/L (35-105); Anion Gap 14.6 (5-19); Aspartate Amino Transferase 22 U/L (0-32); Blood Urea Nitrogen 11 mg/dL (8-23); Calcium 9.3 mg/dL (8.5-10.5); Carbon Dioxide 26 mmol/L (22-29); Chloride 102 mmol/L (98-107); Globulin 2.1 g/dL (1.3-4.6); Glomerular Filtration Rate 55.1 mL/min (90-130); Glucose 108 mg/dL (65-115); NT Pro B Type Natriuretic Pept 126 pg/mL (0-125); Osmolality Calculated 288 mOsm/kg (285-295); Potassium 3.6 mmol/L (3.5-5.1); Sodium 139 mmol/L (136-145); Total Bilirubin 0.4 mg/dL (0.15-1.2); Total Protein 6.2 g/dL (6.6-8.7)
== END 2022-10-27 04:03 | disposition home or self-care (01) ==
PROVIDERS: Emergency Provider Emergency Medicine; PCP Nurse Practitioner Family
DX: R07.9 Chest pain, unspecified (principal); I10 Essential (primary) hypertension; Z79.82 Long term (current) use of aspirin; I25.10 Atherosclerotic heart disease of native coronary artery without angina pectoris; Z85.038 Personal history of other malignant neoplasm of large intestine
CPT/HCPCS: 71045; 80053; 83880; 84484; 85025; 93005; 99285

== ENCOUNTER 2022-11-15 09:14 | Outpatient (CLI) | payer MEDICARE, SELFPAY ==
--- NOTE | 2022-11-15 09:28 | US_ITS ---
WS: [id number] ULTRASOUND-GUIDED LEFT AXILLARY BIOPSY CLINICAL INFORMATION: ENLARGED LYMPH NODE LEFT AXILLA FINDINGS: The procedure including risks, benefits, and complications were discussed with the patient who agreed to proceed. Using sterile technique patient was prepped and draped in the usual sterile fashion. Aft er 1% lidocaine utilizing real-time ultrasound guidance 4 14-gauge cores were obtained of the largest LEFT axillary lymph node. No biopsy clip was placed. No immediate complications. Pathology demonstrates: Left axilla lymph node, needle core biopsies: 1. Benign lymph node and fat identified 2. Negative for malignancy US/US biopsy lymph node breast/ax IMPRESSION: 1. Uncomplicated ultrasound-guided LEFT axillary biopsy. 2. The pathology demonstrates benign lymph node and fat. Negative for malignan cy. 3. Recommend return to annual screening mammography. BI-RADS: 2-Benign FOLLOW UP: 1 Year Follow-up
[2022-11-19 11:13] LABS: Lymphoma Profile (BBPL) See Report
== END 2022-11-15 09:15 | disposition home or self-care (01) ==
LOC: RAD 09:21
PROVIDERS: PCP Nurse Practitioner Family; Visit Provider Nurse Practitioner Family
DX: L04.2 Acute lymphadenitis of upper limb (principal)
CPT/HCPCS: 38505; 76942; 88184; 88185; 88305

== ENCOUNTER → 2022-12-10 13:30 | Outpatient (BNVA) | payer MEDICARE, SELFPAY | PROVIDERS: PCP Nurse Practitioner Family; Visit Provider Internal Medicine Cardiovascular Disease | DX: I10 Essential (primary) hypertension (principal); R94.31 Abnormal electrocardiogram [ECG] [EKG]; E78.00 Pure hypercholesterolemia, unspecified; I25.2 Old myocardial infarction; E03.9 Hypothyroidism, unspecified; Z79.82 Long term (current) use of aspirin | CPT/HCPCS: 99214 ==

== ENCOUNTER 2022-12-11 06:07 | Outpatient (CLI) | payer MEDICARE, SELFPAY ==
[2022-12-11 07:02] VITALS: BMI 36.2
--- NOTE | 2022-12-11 07:05 | NMCV_ITS ---
NM travis perf SPECT r/s* [id number] Vera Wetzel Age: 67 Gender: F : 1955 Exam Date: 12/11/2022 07:54 Ordering Phys: Tran Gilman NP Technologist: NIGEL Machado Exam Location: [facility] Indications: CHEST PAIN STRESS TEST Please see [facility] for [facility] IMAGE PROTOCOL Rest/Stress 1 Lexiscan Day Radiopharmaceutical Dose (mCi) Administration Site Administered by Rest: Tc-99m 10.7 IV NIGEL Casillas Sestamibi Stress:Tc-99m 32.6 IV NIGEL Casillas Sestamibi Rest: 11-Dec-2022 60 Discovery 630 Stress: 11-Dec-2022 30 Discovery 630 0.4mg Lexiscan. Images obtained in supine and prone position. SPECT RESULTS Technical Quality: Excellent Raw Data Analysis: Normal Image Corrections: No attenuation or motion correction applied Summed Stress Score: 11 Summed Rest Score: 9 Summed Difference Score: 3 PERFUSION FINDINGS Moderate area of moderate to severely decreased tracer uptake in the basal, mid and apical inferior, apical septal and LV apex. Some reversibility was noted in the mid inferior apical septum and LV apex. FUNCTIONAL RESULTS (calculated via Gated SPECT) Stress Image LV EF (%): 70 Stress EDV (mL):77 TID: 0.82 Stress ESV (mL):23 FUNCTIONAL FINDINGS: Segmental wall motion analysis revealing no gross wall motion abnormalities IMPRESSIONS 1. Myocardial perfusion imaging revealing moderate area of moderate to severely decreases uptake in the inferior, apical septal and LV apical regions with some reversibility suggesting myocardial scarring mostly in the distribution of the right coronary artery with some areas of berhane-infarction ischemia. 2. Normal LV ejection fraction 70%. 3. LV wall motion analysis revealing no gross wall motion abnormalities. 4. Normal LV volume No similar previous studies are available for comparison Dr Kaitlyn Camargo MD [facility] (Electronically Signed) Final Date: 11 December 2022 11:09 S
--- NOTE | 2022-12-11 07:05 | ECG_ITS ---
[facility] Test Date: 2022-12-11 Pat Name: Vera Wetzel Department: Room: Gender: Female Dental Insurance Coordinator: : 1955 Requested By: Tran Gilman Order Number: [id number] Mateo MD: Kaitlyn Camargo M.D. Interpretive Statements NAME OF STUDY: LEXISCAN SESTAMIBI STRESS TEST INDICATION: Chest Pain/sob, PROCEDURE: At the baseline, the EKG revealed normal sinus rhythm with a poor R wave progression. Left axis deviation. Poor telemetry review of LVH. The baseline heart rate was 73 bpm with a blood pressue of 141/83 mm of Hg Lexiscan was infused over a period of 20 seconds. A total of 0.4 milligrams of Lexiscan was infused. The stress phase was continued for a total of 5 minutes. Heart rate at the end of the stress phase was 91 bpm with a blood pressure 121/79 mm of Hg. The EKG at the peak infusion revealed no significant changes. Sestamibi was injected 20 seconds after the Lexiscan infusion. Heart rate at the end of the recovery phase was 88 bpm with a blood pressure of 127/80 mm of Hg. CONCLUSION: 1. No significant EKG changes with the LexiScan infusion 2. No LexiScan induced chest pain or cardiac arrhythmia 3. Normal blood pressure and heart rate response 4. Sestamibi/sestamibi perfusion scan pending; see separate report. Electronically Signed On 12-11-2022 16:30:45 CDT by Kaitlyn Camargo M.D. [email or web address]
[2022-12-11] MEDS: regadenoson 0.4 Mg/5 ml Syringe IVP (08:36)
[2022-12-11 08:42] VITALS: BP 127/80; PULSE 88
== END 2022-12-11 06:08 | disposition home or self-care (01) ==
PROVIDERS: Family Provider Internal Medicine Cardiovascular Disease; PCP Nurse Practitioner Family; Visit Provider Nurse Practitioner Family
DX: R06.02 Shortness of breath (principal); R07.9 Chest pain, unspecified
CPT/HCPCS: 36415; 78452; 93017; 96374; A9500; J2785

== ENCOUNTER 2022-12-23 19:38 | Emergency (ER) | payer MEDICARE, SELFPAY ==
[2022-12-23 19:43] VITALS: BP 151/88; PULSE 89; RESP 18; TEMP 36.7; O2SAT 95
--- NOTE | 2022-12-23 21:18 | XRR_ITS ---
PROCEDURE INFORMATION: Exam: XR Chest Exam date and time: 12/23/2022 9:43 PM Age: 67 years old Clinical indication: Pain; Chest pressure; Additional info: Cp TECHNIQUE: Imaging protocol: Radiologic exam of the chest. Views: 1 view. COMPARISON: CR (CHEST, ) 10/27/2022 2:37 AM FINDINGS: Lungs: Unremarkable. No consolidation. Pleural spaces: Unremarkable. No pleural effusion. No pneumothorax. Heart/Mediastinum: Stable heart size. Bones/joints: Stable bones. XR/XR chest 1V portable [id number] IMPRESSION: No acute findings.
--- NOTE | 2022-12-23 21:18 | ECG_ITS ---
[facility] Test Date: 2022-12-23 Pat Name: Vera Wetzel Department: Room: Gender: Female Swimming Pool Servicer: : 1955 Requested By: Dontae Cardenas Order Number: [id number] Mateo MD: Raad Collier M.D. Measurements Intervals [place] Rate: 86 P: 24 ND: 167 QRS: -25 QRSD: 122 T: 44 QT: 362 QTc: 435 Interpretive Statements SINUS RHYTHM WITH OCCASIONAL SUPRAVENTRICULAR PREMATURE COMPLEXES MODERATE INTRAVENTRICULAR CONDUCTION DELAY [105+ ms QRS DURATION, 80+ ms Q/S IN V1/V2, NO Q AND 60+ ms R IN I/aVL/V5/V6] VOLTAGE CRITERIA FOR LVH [MEETS CRITERIA IN ONE OF: R(aVL), S(V1), R(V5), R(V5/V6)+S(V1)] Compared to ECG 10/27/2022 01:55:36 Intraventricular conduction delay now present Myocardial infarct finding no longer present Electronically Signed On 12-24-2022 11:31:04 CDT by Raad Collier M.D. [id number]
[2022-12-23] MEDS: aspirin 325 mg Tablet PO (21:25)
[2022-12-23] MEDS: nitroglycerin 1 gm/inch oint Pkt 1 INCH TOPICAL (21:25)
[2022-12-23 21:37] LABS: Basophils # 0.1 10^3/uL (0.0-0.1); Basophils % 0.7 %; Eosinophils % 0.4 %; Hematocrit 45.2 % (37.0-47.0); Hemoglobin 15.3 g/dL (11.5-15.3); Lymphocytes % 27.2 %; Mean Corpuscular HGB Conc 33.8 g/dL (30.0-36.0); Mean Corpuscular Hemoglobin 30.8 pg (28.0-34.0); Mean Corpuscular Volume 90.9 fl (81-99); Mean Platelet Volume 10.3 fL (7.4-10.4); Monocytes # 0.4 10^3/uL (0.2-0.9); Monocytes % 5.7 %; Neutrophils # 4.74 10^3/uL (1.8-7.7); Neutrophils % 65.6 %; Nucleated Red Blood Cells % 0 %; Platelet Count 192 10^3/cmm (130-400); Red Blood Count 4.97 10^6/uL (4.1-5.3); Red Cell Distribution Width 12.7 % (12.1-15.1); White Blood Count 7.2 10^3/uL (4.0-10.0)
[2022-12-23 21:56] LABS: D Dimer 1.01 ug/mIFEU (0-0.59)
[2022-12-23 22:03] LABS: Troponin(5th) Baseline 7 ng/L (0-10)
[2022-12-23 22:04] VITALS: BP 124/81; PULSE 65; RESP 16; O2SAT 96
[2022-12-23 22:08] LABS: Alanine Aminotransferase 16 U/L (0-33); Albumin Level 4.3 g/dL (3.5-5.2); Alkaline Phosphatase 59 U/L (35-105); Anion Gap 17.7 (5-19); Aspartate Amino Transferase 20 U/L (0-32); Blood Urea Nitrogen 8 mg/dL (8-23); Carbon Dioxide 24 mmol/L (22-29); Chloride 103 mmol/L (98-107); Globulin 2.5 g/dL (1.3-4.6); Glomerular Filtration Rate 62.3 mL/min (90-130); Glucose 99 mg/dL (65-115); Magnesium 1.9 mg/dL (1.7-2.3); NT Pro B Type Natriuretic Pept 202 pg/mL (0-125); Osmolality Calculated 290 mOsm/kg (285-295); Potassium 3.7 mmol/L (3.5-5.1); Sodium 141 mmol/L (136-145); Total Bilirubin 0.4 mg/dL (0.15-1.2); Total Protein 6.8 g/dL (6.6-8.7)
--- NOTE | 2022-12-23 22:38 | CTR_ITS ---
PROCEDURE INFORMATION: Exam: CTA Chest With Contrast CTA Abdomen and Pelvis With Contrast Exam date and time: 12/23/2022 10:53 PM Age: 67 years old Clinical indication: Other: Cp/back pain; Additional info: Chest pain, back pain, HTN TECHNIQUE: Imaging protocol: Computed tomographic angiography of the chest with contrast. Computed tomographic angiography of the abdomen and pelvis with contrast. 3D rendering (Not supervised by radiologist): MIP and/or 3D reconstructed images were created by the technologist. Radiation optimization: All CT scans at this facility use at least one of these dose optimization techniques: automated exposure control; mA and/or kV adjustment per patient size (includes targeted exams where dose is matched to clinical indication); or iterative reconstruction. Contrast material: OMNI 350; Contrast volume: 100 ml; Contrast route: INTRAVENOUS (IV); REPORTING DATA: Count of CT and Cardiac NM exams in prior 12 months: This patient has received [address] and 0 known cardiac nuclear medicine studies in the 12 months prior to the current study. COMPARISON: CR (CHEST, ) 12/23/2022 9:43 PM RADIATION DOSE METRICS: Total DLP (mGy-cm): 1482.07 FINDINGS: VASCULATURE: Pulmonary arteries: Normal. No pulmonary emboli. Aorta: No aortic aneurysm. No aortic dissection. Celiac trunk and mesenteric arteries: No occlusion or significant stenosis. Renal arteries: No occlusion or significant stenosis. Right iliac arteries: No occlusion or significant stenosis. Left iliac arteries: No occlusion or significant stenosis. CHEST: Lungs: Minimal peripheral ground-glass density predominantly in the lower lobes bilaterally favor atelectasis. Pleural spaces: Unremarkable. No pneumothorax. No pleural effusion. Heart: Unremarkable. No cardiomegaly. No pericardial effusion. Coronary arteries: Mild coronary artery atherosclerosis. Diaphragm: Small-sized hiatal hernia. ABDOMEN AND PELVIS: Liver: No mass. Gallbladder and bile ducts: Status post cholecystectomy with common bile duct measuring 1.7 cm. No visible stone. Pancreas: Unremarkable. No mass. No ductal dilation. Spleen: Unremarkable. No splenomegaly. Adrenal glands: Unremarkable. No mass. Kidneys and ureters: Unremarkable. No solid mass. No hydronephrosis. Stomach and bowel: There is wall thickening versus underdistention of the colon greatest distally with diverticuli also present. Thickened or underdistended stomach. Appendix: No evidence of appendicitis. Intraperitoneal space: Unremarkable. No free air. No significant fluid collection. Urinary bladder: Unremarkable. No mass. Reproductive: Hysterectomy. Lymph nodes: Unremarkable. No enlarged lymph nodes. Bones/joints: Unremarkable. No acute fracture. Soft tissues: There is a left-sided periumbilical fat and nonobstructed small bowel containing ventral abdominal wall hernia. Previous ventral abdominal wall hernia repair mesh anchors. CT/CT ang [facility] [id number] IMPRESSION: 1. No aortic aneurysm or dissection. 2. Minimal peripheral ground-glass density predominantly in the lower lobes bilaterally favor atelectasis. Correlate for possible pulmonary infection. 3. Status post cholecystectomy with biliary ectasia. Correlate for common bile duct obstruction clinically. 4. Underdistended versus thickened colon. Correlate for possible colitis. No bowel obstruction. 5. Possible gastritis. 6. Left-sided periumbilical fat and nonobstructed bowel containing ventral abdominal wall hernia.
[2022-12-23] MEDS: iohexol 350 mg/mL 500 mL Btl (per mL) IV (22:47)
[2022-12-24 00:32] LABS: Troponin 5 2HR Delta -1 ABS# (0-10)
--- NOTE | 2022-12-24 04:53 | W.ED.CHESTPA ---
HPI - Chest Pain General: Chief Complaint: Chest Pain Stated Complaint: chest pressure, back pain Time Seen by Provider: 12/23/22 21:12 Source: patient and family History of Present Illness: 67-year-old female. She evidently has a history of a distant myocardial infarction. She presents with epigastric/chest pain radiating into her back. She had an increase in diarrhea also over the last 24 hours. No vomiting. Some mild shortness of breath. Symptoms are essentially resolved at this point. MD complaint: chest pain Pertinent past history: prior [place] Onset (ago): hour(s) Timing of current episode: constant and now resolved Prior episodes: No Onset: during rest Associated symptoms: Reports abdominal pain (epigastric), dyspnea and nausea; Deny fever(s), palpitations or vomiting Review of Systems Const: Denies: fever(s), chills or body aches Eyes: Denies: change in vision Card: Reports: chest pain; Denies: palpitations Resp: Reports: dyspnea; Denies: productive cough, non-productive cough or wheezing GI: Reports: abdominal pain (epigastric) and nausea; Denies: vomiting, diarrhea or hematochezia : Denies: difficulty voiding Skin/Breast: Denies: rash Neuro: Denies: headache(s), weakness in extremities, dizziness or confusion PFSH ED PFSH: Medical History Atherosclerosis CAD (coronary artery disease) Colon cancer Coronary thrombosis History of rectocele Hypercholesterolemia Hypertriglyceridemia Hypothyroidism Surgical History History of bowel resection Hx of cholecystectomy Hx of hysterectomy Hx of tubal ligation Social History Smoking and tobacco status: never smoked Physical Exam Const: COMMON NORMALS: no acute distress GENERAL APPEARANCE: cooperative; not ill appearing and not frail appearing HENMT: COMMON NORMALS: normocephalic, atraumatic and Normal external nose present HEAD & SCALP: normocephalic and atraumatic FACE & SINUS: normal facial exam and face symmetric NOSE: Normal external nose present Eye: COMMON NORMALS: Equal, round and reactive pupils present and EOMs intact bilaterally PUPIL: Yes Equal, round and reactive pupils present Neck/C-Spine: GENERAL: Yes trachea midline Chest: CHEST: Yes Symmetrical chest wall rise Resp: COMMON NORMALS: normal respiratory effort, No retractions, No use of accessory muscles and clear to auscultation bilaterally AUSCULTATION: clear to auscultation bilaterally Cardio: COMMON NORMALS: regular rate and regular rhythm RATE: regular rate RHYTHM: regular rhythm GI: COMMON NORMALS: Normal to inspection, nondistended, normoactive bowel sounds present Extremity: COMMON NORMALS: no pedal edema Neuro: TAMMY COMA SCALE: document GCS findings [place] coma scale eye opening: Spontaneous Tammy coma scale verbal response: Orientated Tammy coma scale motor response: Obey commands Tammy coma scale total score: 15 SENSORY EXAM: Yes extremities (intact) Psych: COMMON NORMALS: speech normal SPEECH: Yes normal speech Skin: COMMON NORMALS: no rashes or lesions noted GENERAL SKIN EXAM: no rashes or lesions noted Course Vital Signs: Vital signs: Vital Signs Temperature 98.1 F 12/23/22 19:43 Pulse Rate 65 12/23/22 22:04 Respiratory Rate 16 12/23/22 22:04 Blood Pressure 124/81 12/23/22 22:04 Pulse Oximetry 96 12/23/22 22:04 Oxygen Delivery Me thod 12/23/22 19:43 MDM - Chest Pain Medical Decision Making 67 year old female with resolved chest discomfort. It radiated into her back. Her D dimer is mildly elevated. This gave concern for aortic dissection given her history of hypertension. Her CBC is not remarkable. BMP is not remarkable. Troponin remained normal at 2 hours. CTA of the chest tabin and pelvis reveals no aortic aneurysm or dissection. There is no PE. She does have evidence of gastritis, which given her mild tenderness is the most likely cause of her discomfort. She'll be treated for this. She is encouraged to follow up as an outpatient. She knows to return for a return of her symptoms. Lab Data 12/23/22 21:30 12/23/22 21:30 Radiology Impressions Chest X-Ray 12/23/22 21:18 IMPRESSION: No acute findings. Chest/Abdomen/Pelvis CTA 12/23/22 22:38 IMPRESSION: 1. No aortic aneurysm or dissection. 2. Minimal peripheral ground-glass density predominantly in the lower lobes bilaterally favor atelectasis. Correlate for possible pulmonary infection. 3. Status post cholecystectomy with biliary ectasia. Correlate for common bile duct obstruction clinically. 4. Underdistended versus thickened colon. Correlate for possible colitis. No bowel obstruction. 5. Possible gastritis. 6. Left-sided periumbilical fat and nonobstructed bowel containing ventral abdominal wall hernia. Laboratory Results WBC 7.2 10^3/uL (4.0-10.0) 12/23/22 21: RBC 4.97 10^6/uL (4.1-5.3) 12/23/22: Hgb 15.3 g/dL (11.5-15.3) 12/23/22: Hct 45.2 % (37.0-47.0) 12/23/22: MCV 90.9 fl (81-99) 12/23/22: MCH 30.8 pg (28.0-34.0) 12/23/22: MCHC 33.8 g/dL (30.0-36.0) 12/23/22: RDW 12.7 % (12.1-15.1) 12/23/22: Plt Count 192 10^3/cmm (130-400) 12/23/22: MPV 10.3 fL (7.4-10.4) 12/23/22: Neut % (Auto) 65.6 % 12/23/22: Lymph % (Auto) 27.2 % 12/23/22: [place] % (Auto) 5.7 % 12/23/22: Eos % (Auto) 0.4 % 12/23/22: Baso % (Auto) 0.7 % 12/23/22: Neut # (Auto) 4.74 10^3/uL (1.8-7.7) 12/23/22: Lymph # (Auto) 2.0 10^3/uL (0.8-4.8) 12/23/22: [place] # (Auto) 0.4 10^3/uL (0.2-0.9) 12/23/22: Eos # (Auto) 0.0 10^3/uL (0.0-0.8) 12/23/22: Baso # (Auto) 0.1 10^3/uL (0.0-0.1) 12/23/22 21:30 Nucleated RBC % (auto) 0 % 12/23/22 21: Nucleated RBCs # 0.0 /100WBC 12/23/22 21:30 D-Dimer 1.01 ug/mIFEU (0-0.59) H 12/23/22 21:30 Sodium 141 mmol/L (136-145) 12/23/22 21:30 Potassium 3.7 mmol/L (3.5-5.1) 12/23/22 21: Chloride 103 mmol/L (98-107) 12/23/22 21: Carbon Dioxide 24 mmol/L (22-29) 12/23/22 21: Anion Gap 17.7 (5-19) 12/23/22 21:30 BUN 8 mg/dL (8-23) 12/23/22 21:30 Creatinine 0.9 mg/dL (0.5-0.9) 12/23/22 21:30 GFR Calculation 62.3 mL/min (90-130) L 12/23/22 21: Glucose 99 mg/dL (65-115) 12/23/22 21: Calculated Osmolality 290 mOsm/kg (285-295) 12/23/22: Calcium 9.0 mg/dL (8.5-10.5) 12/23/22 21: Magnesium 1.9 mg/dL (1.7-2.3) 12/23/22 21:30 Total Bilirubin 0.4 mg/dL (0.15-1.2) 12/23/22 21: AST 20 U/L (0-32) 12/23/22 21:30 ALT 16 U/L (0-33) 12/23/22 21:30 Alkaline Phosphatase 59 U/L (35-105) 12/23/22 21:30 Troponin T Baseline 7 ng/L (0-10) 12/23/22 21: Troponin T 120 Minute 6.00 ng/L (0-10) 12/23/22 23:15 Delta Troponin T -1 ABS# (0-10) L 12/23/22 23:15 NT-Pro-B Natriuret Pep 202 pg/mL (0-125) H 12/23/22 21:30 Total Protein 6.8 g/dL (6.6-8.7) 12/23/22 21:30 Albumin 4.3 g/dL (3.5-5.2) 12/23/22 21:30 Globulin 2.5 g/dL (1.3-4.6) 12/23/22 21:30 Discharge Plan Discharge Patient Disposition: Home Clinical Impression: Gastritis Condition: Stable Prescriptions: New Prevacid 30 mg capsule,delayed release(DR/EC) 30 mg PO DAILY Qty: 30 0RF Carafate 1 gram tablet 1 g PO TID 28 Days Qty: 84 0RF No Action lisinopril 20 mg tablet 20 mg PO DAILY Qty: 90 3RF aspirin [Adult Aspirin Regimen] 81 mg tablet,delayed release (DR/EC) 81 mg PO QAM isosorbide mononitrate 30 mg tablet extended release 24 hr 30 mg PO QAM simvastatin 10 mg tablet 10 mg PO BEDTIME nitroglycerin 0.4 mg tablet, sublingual 0.4 mg sublingual Q5M PRN (Reason: Chest Pain) Rx Instructions: do not exceed 3 doses per episode levothyroxine 25 mcg tablet 25 mcg PO QAM amlodipine 5 mg tablet 5 mg PO DAILY Qty: 30 0RF Discharge Orders: Discharge ED (Routine); Ordered 12/24/22 Ordered By: Dontae Rivera Referrals: Tran Gilman NP [Primary Care Provider] - 4-7 days Patient Instructions: Gastritis (ED) Activity Restrictions/Additional Instructions: Return for worsening pain, vomiting liquids or medications, worsening diarrhea, fever greater than 100, any other concerning symptoms. See your doctor this week. Coding Level of Care Code ED Residential Treatment Counselor for [facility]
== END 2022-12-24 00:23 | disposition home or self-care (01) ==
PROVIDERS: Emergency Provider Emergency Medicine; PCP Nurse Practitioner Family
DX: K29.70 Gastritis, unspecified, without bleeding (principal); Z79.82 Long term (current) use of aspirin; I25.10 Atherosclerotic heart disease of native coronary artery without angina pectoris; Z85.038 Personal history of other malignant neoplasm of large intestine
CPT/HCPCS: 71045; 71275; 74174; 80053; 83735; 83880; 84484; 85025; 85378; 93005; 99285; Q9967

== ENCOUNTER 2023-05-21 12:51 | Outpatient (CLI) | payer MEDICARE, SELFPAY ==
--- NOTE | 2023-05-21 | XR_ITS ---
WS: [id number] SCREENING DEXA SCAN [place] CLINICAL INFORMATION: POST MENOPAUSAL COMPARISON: 10/05/2019 FINDINGS: The L1-L4 bone mineral density measures 1.265. This corresponds to a T score score of 0.5 and Z score of 1.4. Left femoral neck bone mineral density measures 1.001 g/cm2. This corresponds to a T score of 0.0 and Z score of 0.8. Right femoral neck bone mineral density measures 1.037 g/cm2. This corresponds to a T score 0.2of and Z score of 1.1. Mean femoral neck bone mineral density measures 1.019 g/cm2. This corresponds to a T score of 0.1 and Z score of 0.9. IMPRESSION: Normal bone mineralization. Patient's FRAX calculated 10 year probability for major osteoporotic fracture is 11.0% and osteoporot ic hip fracture is 1.3%. Bone mineral density lumbar spine increased 11.0% and decrease -2.3% in the femoral neck since 2019
== END 2023-05-21 12:52 | disposition home or self-care (01) ==
PROVIDERS: PCP Nurse Practitioner Family; Visit Provider Nurse Practitioner Family
DX: Z78.0 Asymptomatic menopausal state (principal)
CPT/HCPCS: 77080

== ENCOUNTER 2023-05-27 12:38 | Outpatient (CLI) | payer MEDICARE, SELFPAY ==
--- NOTE | 2023-05-27 12:47 | MM_ITS ---
WS: [id number] BILATERAL 3D TOMOSYNTHESIS DIGITAL SCREENING MAMMOGRAM WITH CAD CLINICAL INFORMATION: SCREENING HISTORY: Screening mammogram. No current complaints. COMPARISON: 2021 TECHNIQUE: Bilateral CC and MLO views. FINDINGS: Fatty-replaced breasts bilaterally. No suspicious focal mass, asymmetry, calcifications, or sql data architect ural distortion. No evidence of malignancy. Vascular calcification. Punctate and lucent centered calc ifications. IMPRESSION: MM/[place] [id number] BI-RADS: 2-Benign FOLLOW UP: 1 Year Follow-up Recommend return to annual screening mammography.
== END 2023-05-27 12:39 | disposition home or self-care (01) ==
PROVIDERS: PCP Nurse Practitioner Family; Visit Provider Nurse Practitioner Family
DX: Z12.31 Encounter for screening mammogram for malignant neoplasm of breast (principal)
CPT/HCPCS: 77063; 77067

== ENCOUNTER 2023-10-16 09:36 | Outpatient (CLI) | payer MEDICARE, SELFPAY ==
--- NOTE | 2023-10-16 10:37 | CT_ITS ---
WS: [id number] CT NECK WITHOUT CONTRAST. HISTORY: LEFT EAR PAIN, TENDERNESS OF NECK TECHNIQUE: Contiguous 2 mm axial images are performed through the neck without intravenous contrast. Sagittal and coronal reformats are also submitted. All CT scans at [facility] use at least on e of these dose optimization techniques: automated exposure control; mA and/or kV adjustment per julito ent size (includes targeted exams where dose is matched to clinical indication); or iterative reconst ruction. CONTRAST: CONTRAST: None DLP: 315.13 mGy.cm COMPARISON: None available. Sensitivity and specificity is decreased without IV contrast. Nasopharynx, oropharynx, hypopharynx and larynx are unremarkable. No soft tissue mass. Torus tubarius and fossa of Rosenmuller and parapharyngeal fat are normal. No significant lymphadenopathy is identified. Thyroid gland and salivary glands are normal size. Mild cervical spondylosis. Skull base is negative. Visualized paranasal sinuses and mastoid air cells are normal. Lung apices are clear. IMPRESSION: 1. No neck mass or adenopathy. 2. Lack of IV contrast decreases sensitivity.
== END 2023-10-16 09:37 | disposition home or self-care (01) ==
LOC: RAD 09:36
PROVIDERS: PCP Nurse Practitioner Family; Visit Provider Nurse Practitioner Family
DX: H92.02 Otalgia, left ear (principal); M54.2 Cervicalgia
CPT/HCPCS: 70490

== ENCOUNTER 2024-06-03 10:32 | Outpatient (CLI) | payer MEDICARE, SELFPAY ==
--- NOTE | 2024-06-03 10:34 | MM_ITS ---
WS: [id number] BILATERAL SCREENING DIGITAL TOMOSYNTHESIS MAMMOGRAM WITH CAD HISTORY: SCREENING COMPARISON: 05/27/2023, 04/09/2022 Bilateral CC and MLO views with tomosynthesis and synthetic mammography submitted. Computer aided det ection analyzed. Breast composition: There are scattered areas of fibroglandular density. No suspicious masses, microc alcifications or architectural distortion. Benign scattered arterial and vascular calcifications. MM/[place] [id number] IMPRESSION: BI-RADS: 2 - Benign. FOLLOW UP: 1 Year Follow-up
== END 2024-06-03 10:33 | disposition home or self-care (01) ==
LOC: RAD 10:32
PROVIDERS: PCP Nurse Practitioner Family; Visit Provider Nurse Practitioner Family
DX: Z12.13 Encounter for screening for malignant neoplasm of small intestine (principal); R92.323 Mammographic fibroglandular density, bilateral breasts; R92.1 Mammographic calcification found on diagnostic imaging of breast
CPT/HCPCS: 77063; 77067

== ENCOUNTER → 2024-12-10 10:03 | Outpatient (BNVA) | payer MEDICARE, SELFPAY | PROVIDERS: PCP Nurse Practitioner Family; Visit Provider Nurse Practitioner Family | DX: L72.0 Epidermal cyst (principal); L82.1 Other seborrheic keratosis; D22.61 Melanocytic nevi of right upper limb, including shoulder; L81.4 Other melanin hyperpigmentation; L57.8 Other skin changes due to chronic exposure to nonionizing radiation; L72.11 Pilar cyst; L57.0 Actinic keratosis | CPT/HCPCS: 17000; 99213 ==